=== PATIENT | male | born 2000 | race Caucasian/White ===

== ENCOUNTER 2019-09-26 07:59 | Emergency (ER) | payer OTHER ==
[~2019-09-26] VITALS: Ht 175.3 cm; Wt 101.0 kg
[2019-09-26 08:11] VITALS: BP 147/83
--- NOTE | 2019-09-26 08:29 | RAD ---
PROCEDURE: ANKLE RIGHT 3V STUDY DATE: 09/26/2019 CLINICAL INDICATION / HISTORY: Reason: ankle pain swelling / Spl. Instructions: / History: . TECHNIQUE: Right ankle 3 views. COMPARISON: None FINDINGS: The ankle mortise is approximated, and the talar dome is unremarkable. The joint space widths are maintained. No fracture or dislocation is identified. No soft tissue swelling is appreciated. IMPRESSION: No acute osseous abnormality. Electronically signed by: Tonya Mccoy MD (09/26/2019 8:26 AM) [id number]
--- NOTE | 2019-09-26 08:52 | PHYS DOC ---
Past History Past Medical History: No Pertinent History Past Surgical History: No Surgical History Alcohol Use: None General Adult EDM: Chief Complaint: ANKLE PROBLEM HPI: HPI: 18-year-old male presents with right ankle pain. The patient rolled his ankle playing soccer 4 days ago. It has been swollen since that time. He still cannot put his full weight on the ankle. He has had a ligament tear in the left ankle in the past. This feels similar. There is also some ecchymosis at the inferior side of the lateral malleolus. Tenderness over the anterior lateral malleolus. He has no other complaints this time. Review of Systems: Review of Systems: Constitutional: Denies fever or chills Eyes: Denies change in visual acuity HENT: Denies nasal congestion or sore throat Respiratory: Denies cough or shortness of breath Cardiovascular: Denies chest pain or edema GI: Denies abdominal pain, nausea, vomiting, bloody stools or diarrhea : Denies dysuria Musculoskeletal: Right ankle pain Integument: Denies rash Neurologic: Denies headache, focal weakness or sensory changes Endocrine: Denies polyuria or polydipsia Lymphatic: Denies swollen glands Psychiatric: Denies depression or anxiety Heart Score: Risk Factors: Risk Factors: DM, Current or recent (<one month) smoker, HTN, HLP, family history of CAD, obesity. Risk Scores: Score 0 - 3: 2.5% MACE over next 6 weeks - Discharge Home Score 4 - 6: 20.3% MACE over next 6 weeks - Admit for Clinical Observation Score 7 - 10: 72.7% MACE over next 6 weeks - Early Invasive Strategies Allergies: Allergies: Allergies Coded Allergies Type Severity Reaction Last Updated Verified No Known Drug Allergies 09/26/19 No Physical Exam: PE: Constitutional: Well developed, well nourished, no acute distress, non-toxic appearance. [] HENT: Normocephalic, atraumatic, bilateral external ears normal, oropharynx m oist, no oral exudates, nose normal. [] Eyes: PERRLA, EOMI, conjunctiva normal, no discharge. [] Neck: Normal range of motion, no tenderness, supple, no stridor. [] Cardiovascular:Heart rate regular rhythm, no murmur [] Lungs & Thorax: Bilateral breath sounds clear to auscultation [] Abdomen: Bowel sounds normal, soft, no tenderness, no masses, no pulsatile masses. [] Skin: Warm, dry, no erythema, no rash. [] Back: No tenderness, no CVA tenderness. [] Extremities: Tenderness over the anterior right ankle, ecchymosis inferior to the lateral malleolus, moderate generalized swelling, no obvious deformity. [] Neurologic: Alert and oriented X 3, normal motor function, normal sensory function, no focal deficits noted. [] Psychologic: Affect normal, judgement normal, mood normal. [] Current Patient Data: Vital Signs: Vital Signs Date Time Temp Pulse Resp B/P (MAP) Pulse Ox O2 Delivery O2 Flow Rate FiO2 09/26/19 08:11 97.9 72 18 147/83 (104) 97 Room Air EKG: EKG: [] Radiology/Procedures: Radiology/Procedures: [] Impressions: PROCEDURE: ANKLE RIGHT 3V STUDY DATE: 09/26/2019 CLINICAL INDICATION / HISTORY: Reason: ankle pain swelling / Spl. Instructions: / History: . TECHNIQUE: Right ankle 3 views. COMPARISON: None FINDINGS: The ankle mortise is approximated, and the talar dome is unremarkable. The joint space widths are maintained. No fracture or dislocation is identified. No soft tissue swelling is appreciated. IMPRESSION: No acute osseous abnormality. Electronically signed by: Omega Mccoy MD (09/26/2019 8:26 AM) [id number] DICTATED AND SIGNED BY: OMEGA MCCOY MD DATE: 09/26/19 0826 CC: NGUYEN KATHLEEN DO; PCP,NO ~ Course & Med Decision Making: Course & Med Decision Making Pertinent Labs and Imaging studies reviewed. (See chart for details) The patient's ankle x-ray is negative for fracture. He appears to have a moderate ankle sprain. We will place him in an air splint and provided crutches. I have given him directions about using the splint. He is stable for discharge at this time. [] Dragon Disclaimer: Ria Disclaimer: This electronic medical record was generated, in whole or in part, using a voice recognition dictation system. Departure Departure: Impression: Primary Impression: Moderate right ankle sprain Qualified Codes: S93.401A - Sprain of unspecified ligament of right ankle, initial encounter Disposition: 01 HOME/RESIDENCE PRIOR TO ADM Condition: STABLE Referrals: PCP,NO (PCP) Patient Instructions: Ankle Sprain, Acute, with Phase I Rehab-SportsMed Justification of Admission: Justification of Admission: Justification of Admission Dx: N/A NGUYEN KATHLEEN DO Sep 26, 2019 08:52
== END 2019-09-26 09:15 | disposition home or self-care (01) ==
LOC: ER 07:59
DX: S93.401A Sprain of unspecified ligament of right ankle, initial encounter (principal); X50.9XXA Other and unspecified overexertion or strenuous movements or postures, initial encounter; Y93.66 Activity, soccer; Y92.89 Other specified places as the place of occurrence of the external cause; Y99.8 Other external cause status
CPT/HCPCS: 73610; 99283